=== PATIENT | female | born 1950 | race Caucasian/White ===

== ENCOUNTER 2021-05-23 10:16 | Emergency (ER) | payer MEDICARE ==
[2021-05-23] MEDS ORDERED: XANAX1 MG PO (12:34)
[2021-05-23] MEDS ORDERED: ENDOCET 5-3251 EACH PO (12:34)
== END 2021-05-23 13:20 | disposition home or self-care (01) ==
LOC: ER1 10:16
DX: Z76.0 Encounter for issue of repeat prescription (principal); R52 Pain, unspecified
CPT/HCPCS: 93005; 99283

== ENCOUNTER 2021-06-16 23:53 | Emergency (ER) | payer MEDICARE ==
[~2021-06-16 23:53] MED LIST: ENDOCET 5-3251 EACH PO; XANAX1 MG PO
[2021-06-17] MEDS ORDERED: PERCOCET 5/325 T1 EA PO (03:08)
[2021-06-17 03:33] LABS: HEMOGLOBIN 14.3 gm/dl (12.3-15.3); RED BLOOD COUNT 4.73 M/UL (4.00-5.10); WHITE BLOOD COUNT 8.4 K/UL (4.5-11.0)
[2021-06-17 03:53] LABS: BUN/CREATININE RATIO 15 (0-10)
[2021-06-17] MEDS ORDERED: ATIVAN0.5 MG PO (05:40)
== END 2021-06-17 05:57 | disposition home or self-care (01) ==
LOC: ER1 23:53
PROVIDERS: Family Medicine
DX: G89.29 Other chronic pain (principal); R10.9 Unspecified abdominal pain; F41.9 Anxiety disorder, unspecified; Z90.49 Acquired absence of other specified parts of digestive tract; F17.210 Nicotine dependence, cigarettes, uncomplicated
CPT/HCPCS: 80053; 83690; 85025; 96374; 99284; J2060; J7030

== ENCOUNTER 2021-08-13 14:35 | Emergency (ER) | payer MEDICARE ==
[~2021-08-13 14:35] MED LIST changes: +ATIVAN0.5 MG PO; +PERCOCET 5/325 T1 EA PO
[2021-08-13 15:19] LABS: HEMOGLOBIN 15.2 gm/dl (12.3-15.3); RED BLOOD COUNT 4.99 M/UL (4.00-5.10); WHITE BLOOD COUNT 7.6 K/UL (4.5-11.0)
[2021-08-13 16:33] LABS: BUN/CREATININE RATIO 9 (0-10)
== END 2021-08-13 19:00 | disposition home or self-care (01) ==
LOC: ER1 14:35
PROVIDERS: Physician Assistant
DX: R07.89 Other chest pain (principal); R06.02 Shortness of breath; F17.200 Nicotine dependence, unspecified, uncomplicated; Z88.0 Allergy status to penicillin; Z86.73 Personal history of transient ischemic attack (TIA), and cerebral infarction without residual deficits
CPT/HCPCS: 71045; 80053; 81001; 82550; 82553; 83690; 83874; 84484; 85025; 93005; 94664; 96374; 96375; 96376; 99285; J2270; J2405; Q9967